=== PATIENT | male | born 1945 | race Caucasian/White ===

== ENCOUNTER → 2018-02-27 13:02 | Outpatient (CLI) | payer MEDICARE, SELFPAY ==
--- NOTE | 2018-03-03 07:05 | LEAS ---
Arterial Study - Arterial Study Arterial Study: This is a 72-year-old male with a history of hyperlipidemia, smoking, and peripheral arterial occlusive disease. The patient presents with wounds of the left foot. With a history of peripheral arterial disease, the patient was brought to the noninvasive vascular laboratory at this time for the purpose of bilateral noninvasive lower extremity arterial assessment. Doppler signal assessment was used to evaluate the pulses at ankle level bilaterally. On the right, the posterior tibial pulse was triphasic. The right dorsalis pedis pulse was biphasic. The left posterior tibial pulse was biphasic. The left dorsalis pedis pulse was monophasic. Segmental limb pressures were obtained bilaterally. The right ankle pressure, as determined by posterior tibial pulse, was measured at 134 mmHg. The right ankle pressure, as determined by dorsalis pedis pulse, was measured at 144 mmHg. The right digital pressure was measured at 35 mmHg. The left low thigh pressure was measured at 144 mmHg. The left calf pressure was measured at 99 mmHg. The left ankle pressure, as determined by posterior tibial pulse, was measured at 75 mmHg. The left ankle pressure, as determined by dorsalis pedis pulse, could not be determined due to the noncompressibility of the vasculature. The left digital pressure was measured at 29 mmHg. Pulse-volume recordings were obtained bilaterally and segmentally. Waveform amplitudes appeared to be diminished at ankle and digital levels on the left. Resting ankle-brachial indices were calculated bilaterally. The resting right ankle-brachial index was calculated to be 1.25. The resting left ankle-brachial index was calculated to be 0.65. Digital-brachial indices were calculated bilaterally. The right digital-brachial index was calculated to be 0.30. The left digital-brachial index was calculated to be 0.25. Impression: Based upon the findings of this resting noninvasive lower extremity arterial study, arterial perfusion appears to be relatively normal to ankle level on the right. Triphasic and biphasic waveforms were noted at ankle level on the right. The resting right ankle-brachial index was normal. The resting left ankle-brachial index is moderately diminished, consistent with moderate arterial occlusive disease at ankle level on the left. Digital-brachial indices are severely diminished bilaterally, suggesting the presence of severe impairment of arterial flow at digital level bilaterally. Clinical correlation is advised.
--- NOTE | 2018-03-03 07:09 | LEAS_ITS ---
Arterial Study - Arterial Study Arterial Study: This is a 72-year-old male with a history of hyperlipidemia, smoking, and peripheral arterial occlusive disease. The patient presents with wounds of the left foot. With a history of peripheral arterial disease, the patient was brought to the noninvasive vascular laboratory at this time for the purpose of bilateral noninvasive lower extremity arterial assessment. Doppler signal assessment was used to evaluate the pulses at ankle level bilaterally. On the right, the posterior tibial pulse was triphasic. The right dorsalis pedis pulse was biphasic. The left posterior tibial pulse was biphasic. The left dorsalis pedis pulse was monophasic. Segmental limb pressures were obtained bilaterally. The right ankle pressure, as determined by posterior tibial pulse, was measured at 134 mmHg. The right ankle pressure, as determined by dorsalis pedis pulse, was measured at 144 mmHg. The right digital pressure was measured at 35 mmHg. The left low thigh pressure was measured at 144 mmHg. The left calf pressure was measured at 99 mmHg. The left ankle pressure, as determined by posterior tibial pulse, was measured at 75 mmHg. The left ankle pressure, as determined by dorsalis pedis pulse, could not be determined due to the noncompressibility of the vasculature. The left digital pressure was measured at 29 mmHg. Pulse-volume recordings were obtained bilaterally and segmentally. Waveform amplitudes appeared to be diminished at ankle and digital levels on the left. Resting ankle-brachial indices were calculated bilaterally. The resting right ankle-brachial index was calculated to be 1.25. The resting left ankle- brachial index was calculated to be 0.65. Digital-brachial indices were calculated bilaterally. The right digital- brachial index was calculated to be 0.30. The left digital-brachial index was calculated to be 0.25. Impression: Based upon the findings of this resting noninvasive lower extremity arterial study, arterial perfusion appears to be relatively normal to ankle level on the right. Triphasic and biphasic waveforms were noted at ankle level on the right. The resting right ankle-brachial index was normal. The resting left ankle-brachial index is moderately diminished, consistent with moderate arterial occlusive disease at ankle level on the left. Digital-brachial indices are severely diminished bilaterally, suggesting the presence of severe impairment of arterial flow at digital level bilaterally. Clinical correlation is advised.
== END ==
PROVIDERS: Family Provider Internal Medicine; PCP Internal Medicine; Visit Provider Podiatrist
DX: I73.9 Peripheral vascular disease, unspecified (principal)
CPT/HCPCS: 93923

== ENCOUNTER → 2018-06-07 08:36 | Outpatient (CLI) | payer MEDICARE, SELFPAY ==
[2018-06-07 09:10] LABS: International Normalized Ratio 1.9; Prothrombin Time (Protime)PT. 21.5 SECONDS (11.7-14.9)
== END ==
PROVIDERS: Family Provider Internal Medicine; PCP Internal Medicine; Visit Provider Internal Medicine
DX: I35.9 Nonrheumatic aortic valve disorder, unspecified (principal); I73.9 Peripheral vascular disease, unspecified; Z95.2 Presence of prosthetic heart valve
CPT/HCPCS: 85610

== ENCOUNTER → 2018-11-21 13:42 | Outpatient (CLI) | payer MEDICARE, SELFPAY ==
[2018-11-21 14:04] LABS: International Normalized Ratio 3.2
== END ==
PROVIDERS: Family Provider Internal Medicine; PCP Internal Medicine; Referring Provider Internal Medicine; Visit Provider Internal Medicine
DX: I25.719 Atherosclerosis of autologous vein coronary artery bypass graft(s) with unspecified angina pectoris (principal); I35.9 Nonrheumatic aortic valve disorder, unspecified; I73.9 Peripheral vascular disease, unspecified
CPT/HCPCS: 85610

== ENCOUNTER → 2019-02-21 | Outpatient (CLI) | payer MEDICARE, SELFPAY ==
[2019-02-21 10:18] LABS: International Normalized Ratio 2.5; Prothrombin Time (Protime)PT. 27.1 SECONDS (11.7-14.9)
== END | disposition home or self-care (01) ==
PROVIDERS: Family Provider Internal Medicine; PCP Internal Medicine; Referring Provider Internal Medicine; Visit Provider Internal Medicine
DX: I25.719 Atherosclerosis of autologous vein coronary artery bypass graft(s) with unspecified angina pectoris (principal); I35.9 Nonrheumatic aortic valve disorder, unspecified; I73.9 Peripheral vascular disease, unspecified
CPT/HCPCS: 85610

== ENCOUNTER → 2019-03-23 | Outpatient (CLI) | payer MEDICARE, SELFPAY ==
[2017-07-26 08:13] VITALS: BMI 23.7
[2019-03-23 10:49] LABS: International Normalized Ratio 2.4; Prothrombin Time (Protime)PT. 26.3 SECONDS (11.7-14.9)
== END | disposition home or self-care (01) ==
LOC: LABSPEC 10:27
PROVIDERS: Family Provider Internal Medicine; PCP Internal Medicine; Referring Provider Internal Medicine; Visit Provider Internal Medicine
DX: I73.9 Peripheral vascular disease, unspecified (principal); I35.9 Nonrheumatic aortic valve disorder, unspecified; I25.719 Atherosclerosis of autologous vein coronary artery bypass graft(s) with unspecified angina pectoris
CPT/HCPCS: 85610

== ENCOUNTER → 2019-05-16 09:01 | Outpatient (CLI) | payer MEDICARE, SELFPAY ==
[2017-07-26 08:13] VITALS: BMI 23.7
[2019-05-16 09:33] LABS: Prothrombin Time (Protime)PT. 22.6 SECONDS (11.7-14.9)
== END ==
PROVIDERS: Family Provider Internal Medicine; PCP Internal Medicine; Referring Provider Internal Medicine; Visit Provider Internal Medicine
DX: I73.9 Peripheral vascular disease, unspecified (principal); I35.9 Nonrheumatic aortic valve disorder, unspecified; I25.719 Atherosclerosis of autologous vein coronary artery bypass graft(s) with unspecified angina pectoris
CPT/HCPCS: 85610

== ENCOUNTER 2019-12-24 10:23 | Emergency (ER) | payer MEDICARE, SELFPAY ==
[2019-12-24 10:23] VITALS: BP 175/8; PULSE 72; RESP 18; TEMP 36.6; O2SAT 97; BMI 23.6
--- NOTE | 2019-12-24 10:32 | RAD_ITS ---
STUDY: X-RAY - LEFT HAND REASON FOR EXAM: Male, 74 years old. 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 ON COUMADIN TECHNIQUE: 3 view(s) of the hand. COMPARISON: None. FINDINGS: Normal radiocarpal articulation. Normal distal radioulnar joint. Normal visualized carpal bones. Normal carpal articulations Normal carpometacarpal articulation of the thumb. Normal second through fifth carpometacarpal joints. Normal metacarpi. Normal metacarpophalangeal joint of the thumb. Normal interphalangeal joint of the thumb. Normal proximal and distal phalanges of the thumb. Normal metacarpophalangeal joints of the second through fifth fingers. Normal proximal and distal interphalangeal joints of the second through fifth fingers. Normal phalanges of the second through fifth fingers. Diffuse soft tissue swelling especially along the dorsal aspect of the hand. There are multiple tiny radial opaque opacities suggestive of a foreign bodies. There is evidence of a 3.9 linear radiopaque foreign body along the ulnar aspect of the first metacarpal suggestive of a metallic foreign body. RAD/Hand Min 3 Views IMPRESSION: Diffuse soft tissue swelling and laceration. Multiple radiopaque foreign bodies within the soft tissues. Electronically Signed: Campbell Last, at 11:53 EDT , Service support ,
--- NOTE | 2019-12-24 10:33 | ED.DCSUM_ITS ---
History of Present Illness Chief Complaint: Laceration Detail of Chief Complaint: Dorsum left hand Informant: Patient, Significant Other Onset: Hours Mechanism/Context: Incised Quality of Pain: Aching Location: Left hand Current Severity: Gone Maximum Severity: Mild Worsened by: Palpation Relieved by: Nothing Associated Symptoms: Negative for: Parasthesias, Weakness, Loss of function Narrative: Patient is elderly male on Coumadin since he has a metallic [place] valve. INR was last assessed 1 month ago. He presents with laceration dorsal surface left hand. He was grinding. He is right-hand dominant. He denies paresthesia, anesthesia motor aches. He is not a good informant. Believe this to be secondary to the fact that he is hard of hearing. assisted with history. Prior similar symptoms: No Recent Illness/Hospitalization: No - Past Medical History (1) C2 cervical fracture Status: Acute (2) Closed fracture of iliac wing of pelvis Status: Acute (3) Closed head injury Status: Acute (4) Right humeral fracture Status: Acute (5) Subdural hematoma Status: Acute (6) BPH (benign prostatic hyperplasia) Status: Chronic (7) Colitis Status: Chronic (8) Depression Status: Chronic (9) Dyslipidemia Status: Chronic (10) H/O aortic valve replacement Status: Chronic (11) HTN (hypertension) Status: Chronic (12) Hearing impairment Status: Chronic (13) History of total hip arthroplasty Status: Chronic (14) Hypothyroidism Status: Chronic (15) Insomnia Status: Chronic (16) Macular degeneration Status: Chronic Comment: with associated loc (closed head injury) (17) Osteoporosis Status: Chronic (18) RLS (restless legs syndrome) Status: Chronic Past Medical History - Allergies and Home Meds Allergies/Adverse Reactions: Allergies iodine Allergy (Verified 02/20/16 16:38) [facility] Primary Care Physician: Abe Childress MD [Primary Care Provider] - Prior records reviewed: Yes Surgical History: coronary bypass surgery, - - CABG, MVR vs AVR, T LHR w/ follow-up surgery for infection, Sciatic nerve stimulator, R thigh compartment syndrome surgery, Eye surgery, Back surgery w/ fusion, Jaw surgery, Hip surgery, recent R incarcerated femoral hernia, R hemicolectomy, Cholecystectomy, Chest Tube placement, Rib repair/plates s/p trauma. Lives: Spouse/ Significant Other Smoking Status: Former smoker Alcohol: None Drugs: None - Family History Maternal Family History: Reports: Hypertension, Stroke - CVA, 84. Paternal Family History: Reports: Heart Disease - MA at 72. Review of Systems Musculoskeletal: Reports: Extremity Pain. Denies: Myalgias, Arthralgias, Neck pain, Back pain, Swelling Skin: Reports: Wounds. Denies: Rash Neurological: Denies: Weakness, Parasthesia, Numbness Psych: Reports: Depression Hematologic: Reports: Easy bruising, Easy bleeding Allergy: Denies: Uticaria, Swelling of the mouth Physical Exam Vital Signs/Narrative: Vital Signs Temp Pulse Resp BP Pulse Ox 12/24/19 10:23 97.8 F 72 18 175/8 H 97 Inital Vital Signs reviewed: Yes General: Well nourished, Well developed Head: Normocephalic, Atraumatic Eyes: Perrl. Negative for: Pale conjunctiva, Scleral icterus Cardiovascular: Regular rate, Regular rhythm, No murmurs, - - Metallic click noted over the left lower sternal border. Transmits throughout the precordium. Respiratory: No distress, CTA bilaterally, Chest nontender Extremeties: There is a laceration from the MCP joint of the left index finger to the wrist. The extensor indices tendon is functionally intact. The extensor commonness tendon is intact to the long and ring finger. Capillary refill is normal. Sensation is normal. Median, radial and ulnar function intact. Neurological: Alert, Cranial nerves II-XII grossly intact, Normal Strength, Normal Sensation Psychological: Depressed - Glascow Coma Scale Eye Opening: Spontaneous Motor: Obeys Commands Verbal: Oriented Coma Scale Total: 15 Diagnostic/Tx/Re-eval Chest X-Ray - ED: Read by ED Physician, - - 3 x-ray hand reveals multiple pieces of metallic foreign body. 12/24/19 10:32 Hand Min 3 Views [RAD] Stat Laboratory Results 12/24/19 11:20 PT 20.4 H INR 1.8 3 view x-ray of the hand reveals multiple metallic foreign bodies. There is no evidence of fracture. There is no other abnormality noted. - Medical Decision Making She has a significant laceration dorsal surface of the left hand over the second metacarpal bone. There is a large clot noted. Will obtain x-ray to determine if there is any metallic foreign body from grinding. Plan is to anesthetize the area evacuate the clot and determine if there is injury to the extensor tendon or not. We will then repair laceration. Please read procedure note. Laceration No standard instances Length: 2.36 in Depth: There is involvement of skin, subcutaneous tissue, fascia, muscle and extensor into site tendon Shape: Linear Prep: Sterile Conditions, Shure-Clens Laceration Repair: Local Irrigated (ml): 250 Number of Sutures/Fleming: 10 - 1 simple 9 vertical mattress stitches Stitch Description: Ethilon, 5-0 Comment: Patient splayed the extensor in the site tendon. The length of the tendon injury is 2.5 cm. The wound was Nestabs for local infiltration. The wound was copiously irrigated. Clots were removed. Foreign body was removed. The tendon was not repaired. The skin was closed with 5-0 Ethilon. requested follow-up with orthopedics at [facility]. She was informed that Dr. Los Hills is orthopedic surgeon and comes to [facility] and also specializes in hand. Procedures - Upper Extremity Splints Upper Extremity Splint: Orthoglass, - - Volar splint with wrist in extension and fingers in extension ED Disposition - Plan for ED Patient: Disposition: Home or Assisted Living Diagnosis: Laceration of hand involving extensor tendon Instructions: LACERATION, Hand, LACERATION, Tendon Prescriptions: Cephalexin [Keflex] 500 mg PO TID #10 cap Transmission Status: Pending to [id number] Referrals: Abe Childress MD [Primary Care Provider] - Los Hills MD [STAFF PHYSICIAN] - 2 Days for wound check
[2019-12-24 11:39] LABS: International Normalized Ratio 1.8; Prothrombin Time (Protime)PT. 20.4 SECONDS (11.7-14.9)
[2019-12-24] MEDS: Cefazolin 1 GM/5 ML Vial IM (13:07)
[2019-12-24 13:24] VITALS: BP 134/65; PULSE 70; RESP 18; O2SAT 96
== END 2019-12-24 13:40 | disposition home or self-care (01) ==
PROVIDERS: Emergency Provider Emergency Medicine; PCP Internal Medicine
DX: S61.422A Laceration with foreign body of left hand, initial encounter (principal); Y93.9 Activity, unspecified; Z79.01 Long term (current) use of anticoagulants; Z87.891 Personal history of nicotine dependence; Z95.1 Presence of aortocoronary bypass graft; Z95.2 Presence of prosthetic heart valve
CPT/HCPCS: 12001; 73130; 85610; 96372; 99283

== ENCOUNTER 2019-12-25 13:15 | Emergency (ER) | payer MEDICARE, SELFPAY ==
[2019-12-24 10:23] VITALS: BMI 23.6
[2019-12-25 13:18] VITALS: BP 120/67; PULSE 93; RESP 16; TEMP 36.6; O2SAT 99; BMI 24.0
--- NOTE | 2019-12-25 13:48 | ED.DCSUM_ITS ---
- ER Visit Summary Date of Service: 12/25/19 Chief Complaint: Wound check History of Present Illness: The patient is a 74 M who presents for a wound check to his left hand laceration. Patient was seen here yesterday and had sutures placed for laceration to his left hand that occurred using a gear and spline grinder. Patient did have a tendon laceration and was placed in a splint. Patient is on Coumadin and had a pressure dressing applied yesterday. Patient denies any further bleeding. Patient denies any fevers or chills. Patient admits to some tingling and tightness to his hand from his dressing. Physical Examination: Vital signs are stable. Patient is afebrile. Patient is in no acute distress. Skin is warm dry. There is a laceration over the dorsal aspect of his left hand that has been sutured. There is no active bleeding. There is no erythema or warmth. There is no discharge or drainage. Sensation was intact to light touch in all digits. Capillary refill was less than 2 seconds in all digits. Radial pulses are equal bilaterally. Emergency Department Course and Treatment: The splint and dressing was removed. A Xeroform and Telfa dressing was applied. An ABD dressing was applied over that. Gauze dressing and the splint was reapplied. Patient states his hand feels better after this. Patient was instructed to keep his hand elevated. Patient was instructed to continue his Coumadin as prescribed. Patient was instructed to follow-up with his primary care physician in 5 to 7 days. Patient was instructed to follow-up with his orthopedist as scheduled. Patient understood and was agreeable with the plan. All questions were answered. Disposition: Discharge home Impression: 1. Wound check 2. Healing laceration left hand This note was generated with [employer] dictation software. It may contain incorrect words, spelling, and punctuation that were not noted in review of the chart prior to signing ED Disposition - Plan for ED Patient: Disposition: Home or Assisted Living Diagnosis: Encounter for post-traumatic wound check Instructions: WOUND CHECK, Lac F/U (No Infection) Referrals: Abe Childress MD [Primary Care Provider] - 5-7 Days Los Hills MD [STAFF PHYSICIAN] - Keep Mark appointment
--- NOTE | 2019-12-25 14:03 | ED.RN ---
assisted patient into wheelchair at discharge, family refuses help getting patient out to the car. family pushes wheelchair out of department.
== END 2019-12-25 14:04 | disposition home or self-care (01) ==
PROVIDERS: Emergency Provider Emergency Medicine; PCP Internal Medicine
DX: Z48.00 Encounter for change or removal of nonsurgical wound dressing (principal); Z79.01 Long term (current) use of anticoagulants
CPT/HCPCS: 99282

== ENCOUNTER 2020-02-01 12:00 | Outpatient (RCR) | payer MEDICARE, SELFPAY ==
[2020-01-18 14:08] VITALS: BP 122/61; PULSE 78; RESP 18; TEMP 36.3; BMI 24.0
--- NOTE | 2020-01-18 14:12 | WC ---
Pt had accident on December 23 with tool and cutter grinder. Pt went to ER for sutures. then refered to Dr Hills for suture removal. then refered to [facility]. pt L anterior hand incision open and ligament exposed . no erthyema
--- NOTE | 2020-01-18 16:46 | HP.PCM_ITS ---
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 Current Visit: Yes Qualifiers: Encounter type: subsequent encounter Qualified Code(s): T81.31XD - Disruption of external operation (surgical) wound, not elsewhere classified, subsequent encounter Code(s): T81.31XA - Disruption of external operation (surgical) wound, not elsewhere classified, initial encounter (3) Dyslipidemia Status: Chronic Current Visit: Yes Code(s): E78.5 - Hyperlipidemia, unspecified (4) Hearing impairment Status: Chronic Current Visit: Yes Qualifiers: Hearing loss type: unspecified Laterality: unspecified laterality Qualified Code(s): H91.90 - Unspecified hearing loss, unspecified ear Code(s): H91.90 - Unspecified hearing loss, unspecified ear (5) Aortocoronary bypass status Status: Chronic Current Visit: Yes Code(s): Z95.1 - Presence of aortocoronary bypass graft Comment: x2 1998 (6) History of heart valve replacement Status: Chronic Current Visit: Yes Code(s): Z95.2 - Presence of prosthetic heart valve Comment: metallic aortic valve 1998 (7) History of coronary artery bypass graft Status: Chronic Current Visit: Yes (8) H/O aortic valve replacement Status: Chronic Current Visit: Yes Code(s): Z95.2 - Presence of prosthetic heart valve (9) Pacemaker Status: Chronic Current Visit: Yes Code(s): Z95.0 - Presence of cardiac pacemaker (10) HTN (hypertension) Status: Chronic Current Visit: Yes Qualifiers: Hypertension type: unspecified Qualified Code(s): I10 - Essential (primary) hypertension Code(s): I10 - Essential (primary) hypertension History of Present Illness Date of Service: 01/18/20 Chief Complaint: left hand laceration with dehiscence History of Wound: Tereso is a pleasent 74 yo male with hearing impairment that presents to the wound center today for treatment and evaluation of a laceration of his left hand that occurred on 12/24/2019 when he injured himself with a metal tank erector and waited 5 hours before seeking medical treatment. He had significant blood loss as he is chronically anticoagulated with coumadin for a prosthetic heart valve replacement. He was seen in the ER at [facility] and the wound was irrigated due to metal fragments in the wound and there was a lengthwise injury to his extensor tendon but it was still intact. The skin was sutured together and he was placed on keflex. He returned to the ER on 12/25/2019 for a dressing change. He was referred to Dr. Hills for further treatment and management to ensure that the tendon was healed and no further surgery would be needed. He examined him and noted significant swelling and bruising and had return in 1 week. On 01/03/2020, he returned for follow up and had some dehiscence of the laceration and the sutures were removed and he was placed on Bactrim DS. He followed up on 01/14/2020 and had partial exposure of tendon. He was referred here by Dr. Hills for further treatment and evaluation. He is here today with his sister who provides much of the history with him having significant hearing loss. She has been doing dressing changes daily with wet to dry dressings. 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 He has significant bleeding with dressing changes due to his chronic anticoagulation. He denies fever or chills or increased drainage or pain or erythema. Past Medical History Past Medical History: Chronic Problems Dehiscence of closure of skin (Chronic) BPH (benign prostatic hyperplasia) (Chronic) Depression (Chronic) Colitis (Chronic) Dyslipidemia (Chronic) Hearing impairment (Chronic) Aortocoronary bypass status (Chronic) x2 1998 Hypothyroidism (Chronic) Insomnia (Chronic) Macular degeneration (Chronic) with associated loc (closed head injury) Ulcerative colitis (Chronic) History of heart valve replacement (Chronic) metallic aortic valve 1998 History of total hip arthroplasty (Chronic) History of coronary artery bypass graft (Chronic) H/O aortic valve replacement (Chronic) Pacemaker (Chronic) History of lumbar fusion (Chronic) History of rib fracture (Chronic) RLS (restless legs syndrome) (Chronic) Recurrent right inguinal hernia (Chronic) Osteoporosis (Chronic) HTN (hypertension) (Chronic) Surgical History: coronary bypass surgery, - - CABG, MVR vs AVR, T LHR w/ follow-up surgery for infection, Sciatic nerve stimulator, R thigh compartment syndrome surgery, Eye surgery, Back surgery w/ fusion, Jaw surgery, Hip surgery, recent R incarcerated femoral hernia, R hemicolectomy, Cholecystectomy, Chest Tube placement, Rib repair/plates s/p trauma. Allergies/Adverse Reactions: Allergies iodine Allergy (Verified 02/20/16 16:38) Hives Home Medications: Ambulatory Orders Medication Instructions Recorded Carvedilol [Coreg (Beta Margaret)] 12.5 mg PO BID 07/04/14 Levothyroxine [Synthroid] 88 mcg PO DAILY 07/04/14 Pantoprazole Sodium [Protonix] 40 mg PO DAILY 07/04/14 Temazepam [Restoril] 15 mg PO QHS PRN PRN 07/04/14 Terazosin HCl [Hytrin] 5 mg PO BID 07/04/14 Warfarin [Coumadin] 10 mg PO MOWEFR 07/04/14 Calcipotriene/Betamethasone 1 applicatio TOPICAL DAILY 02/20/16 [Calcipotriene-Betameth Dp Oint] Clobetasol Propionate 1 applicatio TOPICAL DAILY 02/20/16 Clobetasol Propionate [Temovate 1 applic TOPICAL DAILY 02/20/16 Ointment] Fluocinolone Acetonide Oil 1 applicatio TOPICAL DAILY 02/20/16 [Dermotic] Isosorbide Mononitrate [Imdur] 30 mg PO DAILY 02/20/16 Ranolazine [Ranexa] 500 mg PO BID 02/20/16 Warfarin Sodium [Coumadin] 7.5 mg PO SUTUTH 02/20/16 Calcium (Elemental) [Os-Miah 500] 500 mg PO BIDCM tablet 03/10/16 Escitalopram Oxalate [Lexapro] 10 mg PO DAILY #30 tablet 03/10/16 Gabapentin [Neurontin] 300 mg PO TIDCM #90 capsule 03/10/16 Lisinopril [Zestril] 5 mg PO DAILY #30 tablet 03/10/16 Magnesium Oxide [Mag-Ox 400] 400 mg PO DAILYCM tablet 03/10/16 Pramipexole Di-HCl [Mirapex] 0.5 mg PO BID #60 tablet 03/10/16 Aspirin [Low Dose Aspirin EC] 81 mg PO DAILY 07/26/17 Atorvastatin Calcium 10 mg PO DAILY 07/26/17 Celecoxib [Celebrex] 100 mg PO BID 07/26/17 Cyanocobalamin (Vitamin B-12) 2,500 mcg PO DAILY 07/26/17 [Vitamin B12] Iron Polysaccharide Complex 65 mg PO DAILYCM 07/26/17 [Ferrex 150] Mirtazapine [Remeron] 15 mg PO QHS 07/26/17 Oxybutynin [Ditropan] 5 mg PO DAILY 07/26/17 Vit C/E/Zn/Coppr/Lutein/Zeaxan 1 each PO BID 07/26/17 [Preservision Areds 2 Softgel] - Family History Maternal Hypertension, Stroke - CVA, 84. Paternal Heart Disease - [place] at 72. Lives: With Family Smoking Status: Never smoker Tobacco Use: Non-smoker Alcohol: None Drugs: None Review of Systems Constitutional: Denies: Chills, Fever, Weight Change Eyes: Denies: Pain, Vision Change HEENT: Denies: Difficulty Hearing, Difficulty Swallowing, Sinus Congestion Cardiovascular: Denies: Chest Pain, Palpitations Respiratory: Denies: Cough, Shortness of Breath Gastrointestinal: Denies: Diarrhea, Nausea, Vomiting Skin: Reports: Wounds Hematologic/ Lymphatic: Denies: Easy Bruising, Easy Bleeding - Physical Exam Vital Signs Temp Pulse Resp BP 97.3 F L 78 18 122/61 H 01/18/20 14:08 01/18/20 14:08 01/18/20 14:08 01/18/20 14:08 General: Alert, Oriented x3, Cooperative, No apparent distress HEENT: Atraumatic, Normocephalic Oral: Moist Mucosa Neck: Supple Lungs: Clear to auscultation Cardiovascular: Regular rate, Regular Rhythm Abdomen: Soft, Non Tender Extremities: No edema Skin: Ulcer/ Wound Wound Measurements and Assessment WC - Nurse 1 - General Ulcer Measurement Start: 01/18/20 13:59 Freq: Status: Active Protocol: Activity Type Activity Date Activity User E-Sign Co-Sign Detail Recorded Client Recorded Date Recorded By Document 01/18/20 14:08 RB [id number] 01/18/20 14:12 RB 01/18/20 14:08 Wound Center Nurse 1 [Ulcer Assessment] 1. L anterior hand -Combined with other wound No -Current Size (cm) - Length 5.5 -Current Size (cm) - Width 1.5 -Current Size (cm) - Depth 0.3 -Total Square Cm 8.25 -Photo Taken Yes -Tunneling No -Undermining/Tunneling No -Circular Undermining No -Exudate Amt Medium -Exudate Type Serosanguineous -Wound Margin Thickened & Rolled Under -Granulation Amt Medium (34-66%) -Granulation Quality [place] -Slough/Fibrin Yes -Necrosis Amt Small (1-33%) -Necrotic Tissue Type Adherent Slough -Structure Exposed Tendon,Fascia,N /A -Texture (Alexandra-wound Skin Appearance) Assessed, Localized Edema -Moisture (Alexandra-wound Skin Appearance Assessed ) -Color (Alexandra-wound Skin Appearance) Assessed -Temperature (Alexandra-wound Skin No Abnormality Appearance) (Pt Warm) -Tenderness on Palpation (Alexandra-wound No Skin Appearance) -Ulcer Cleansing Wound Cleanser -Foul Odor after Cleansing No -Anesthetic Used 4% Lidocaine Solution WC - Nurse 2 - General Ulcer CM Notes Start: 01/18/20 13:59 Freq: Status: Active Protocol: Activity Type Activity Date Activity User E-Sign Co-Sign Detail Recorded Client Recorded Date Recorded By Document 01/18/20 14:43 DV [id number] 01/18/20 14:48 DV 01/18/20 14:43 Wound Center Nurse 2 [Procedure/Treatment] -Time 14:44 -Correct Patient Yes -Correct Side, Site, Position Yes -Correct Procedure Yes -Procedure Performed Yes -Type of Procedure Debridement -Clinical Debridement Subcutaneous -Post Debridement Size (cm) - Length 5.5 -Post Debridement Size (cm) - Width 1.6 -Post Debridement Size (cm) - Depth 0.9 -Total Square Cm 8.80 -Wound/Ulcer Outcome Not Healed -Ulcer Cleansing Rinsed/ Irrigated with Saline -Foul Odor after Cleansing No -Bioengineered Tissue No -Bleeding Controlled with Pressure -Offloading No -Treatment Response Procedure Tolerated Well [See Physician Procedure note for Specifics] Pain Scale: 0-10 Numeric [Pain] -Is Patient Pain Free? Yes Psych/Mental Status: Normal Affect, Appropriate Debridement Note Post-Debridement Measurements/Treatment WC - Nurse 2 - General Ulcer CM Notes Start: 01/18/20 13:59 Freq: Status: Active Protocol: Activity Type Activity Date Activity User E-Sign Co-Sign Detail Recorded Client Recorded Date Recorded By Document 01/18/20 14:43 DV [id number] 01/18/20 14:48 DV 01/18/20 14:43 Wound Center Nurse 2 1. L anterior hand -Time 14:44 -Correct Patient Yes -Correct Side, Site, Position Yes -Correct Procedure Yes -Procedure Performed Yes -Type of Procedure Debridement -Clinical Debridement Subcutaneous -Post Debridement Size (cm) - Length 5.5 -Post Debridement Size (cm) - Width 1.6 -Post Debridement Size (cm) - Depth 0.9 -Total Square Cm 8.80 -Wound/Ulcer Outcome Not Healed -Ulcer Cleansing Rinsed/ Irrigated with Saline -Foul Odor after Cleansing No -Bioengineered Tissue No -Bleeding Controlled with Pressure -Offloading No -Treatment Response Procedure Tolerated Well Pain Scale: 0-10 Numeric Is Patient Pain Free? Yes Wound debrided: left anterior hand Laterality: Left Type of Debridement: Excisional debridement Anesthesia Used: 4% Lidocaine Solution, 5% Lidocaine Gel Depth: Down to and including healthy tissue, in the subcutaneous layer Percentage of wound debrided: 100 Instrument Used: 5mm curette Tissue Removed: yellow slough, devitalized tissue Severity: Fat Layer Exposed Amount of bleeding with debridement: Mild Bleeding Controlled with: Compression and gauze Patient tolerated procedure well Assessment/Plan Active Problems Laceration of left hand (Acute) Dehiscence of closure of skin (Chronic) Dyslipidemia (Chronic) Hearing impairment (Chronic) Aortocoronary bypass status (Chronic) x2 1999 History of heart valve replacement (Chronic) metallic aortic valve 1999 History of coronary artery bypass graft (Chronic) H/O aortic valve replacement (Chronic) Pacemaker (Chronic) HTN (hypertension) (Chronic) Assessment: laceration left dorsal hand with dehiscence and partial extensor tendon exposure Plan: Tereso's wound was evaluated and debrided today. The wound looks healthy overall but did have some slough present. Based on the depth of his wound and the tendon exposure, I feel that the patient would be best served by a wound vac such as snap vac to treat his drainage and improve the depth and promote closure of the wound. He may also benefit from application of an advanced tissue product such as Epifix to close the wound. He has undergone standard wound care since 12/24/2019 and it will be 4 weeks of treatment as of 01/21/2020. He was advised to call with any issues with wound vac. Would consider treatment with medihoney calcium alginate dressing changed daily if wound vac does not stay in place. He will notify us with any erythema, fever, chills, increased bleeding. F/U in 1 week.
[2020-01-28 11:52] VITALS: BP 113/65; PULSE 47; RESP 18; TEMP 36.2; BMI 24.0
[2020-02-01 12:23] VITALS: BP 133/74; PULSE 49; RESP 18; TEMP 36.8; BMI 24.0
--- NOTE | 2020-02-01 18:48 | PCM.WC.PN ---
(1) Laceration of left hand Status: Chronic Current Visit: Yes Qualifiers: Encounter type: subsequent encounter Foreign body presence: without foreign body Qualified Code(s): S61.412D - Laceration without foreign body of left hand, subsequent encounter Code(s): S61.412A - Laceration without foreign body of left hand, initial encounter (2) Dehiscence of closure of skin Status: Chronic Current Visit: Yes Qualifiers: Encounter type: subsequent encounter Qualified Code(s): T81.31XD - Disruption of external operation (surgical) wound, not elsewhere classified, subsequent encounter Code(s): T81.31XA - Disruption of external operation (surgical) wound, not elsewhere classified, initial encounter (3) Dyslipidemia Status: Chronic Current Visit: Yes Code(s): E78.5 - Hyperlipidemia, unspecified (4) Hearing impairment Status: Chronic Current Visit: Yes Qualifiers: Hearing loss type: unspecified Laterality: unspecified laterality Qualified Code(s): H91.90 - Unspecified hearing loss, unspecified ear Code(s): H91.90 - Unspecified hearing loss, unspecified ear (5) Aortocoronary bypass status Status: Chronic Current Visit: Yes Code(s): Z95.1 - Presence of aortocoronary bypass graft Comment: x2 1998 (6) History of heart valve replacement Status: Chronic Current Visit: Yes Code(s): Z95.2 - Presence of prosthetic heart valve Comment: metallic aortic valve 1998 (7) History of coronary artery bypass graft Status: Chronic Current Visit: Yes (8) H/O aortic valve replacement Status: Chronic Current Visit: Yes Code(s): Z95.2 - Presence of prosthetic heart valve (9) Pacemaker Status: Chronic Current Visit: Yes Code(s): Z95.0 - Presence of cardiac pacemaker (10) HTN (hypertension) Status: Chronic Current Visit: Yes Qualifiers: Hypertension type: unspecified Qualified Code(s): I10 - Essential (primary) hypertension Code(s): I10 - Essential (primary) hypertension Type of Wound Date of Service: 02/01/20 Chief Complaint: left hand laceration with dehiscence History of Wound: Tereso is a pleasent 74 yo male with hearing impairment that presents to the wound center today for treatment and evaluation of a laceration of his left hand that occurred on 12/24/2019 when he injured himself with a 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 He had significant blood loss as he is chronically anticoagulated with coumadin for a prosthetic heart valve replacement. He was seen in the ER at [facility] and the wound was irrigated due to metal fragments in the wound and there was a lengthwise injury to his extensor tendon but it was still intact. The skin was sutured together and he was placed on keflex. He returned to the ER on 12/25/2019 for a dressing change. He was referred to Dr. Hills for further treatment and management to ensure that the tendon was healed and no further surgery would be needed. He examined him and noted significant swelling and bruising and had return in 1 week. On 01/03/2020, he returned for follow up and had some dehiscence of the laceration and the sutures were removed and he was placed on Bactrim DS. He followed up on 01/14/2020 and had partial exposure of tendon. He was referred here by Dr. Hills for further treatment and evaluation. He is here today with his sister who provides much of the history with him having significant hearing loss. She has been doing dressing changes daily with wet to dry dressings. 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 He has significant bleeding with dressing changes due to his chronic anticoagulation. He denies fever or chills or increased drainage or pain or erythema. Progress of Wound: [place]sons wound is showing tremendous progress with the SNAP vac treatment. He is tolerating the treatment well. Initially he had to have it changed after 4 days due to some bleeding and large amount of drainage but it has decreased in size significantly and the tendon is no longer exposed. He denies any fever or chills or pain. He notes some decreased sensation in his index and middle fingers and some persistent swelling. - Physical Exam Vital Signs Temp Pulse Resp BP 98.3 F 49 L 18 133/74 H 02/01/20 12:23 02/01/20 12:23 02/01/20 12:23 02/01/20 12:23 General: Alert, No apparent distress HEENT: Atraumatic, Normocephalic Oral: Moist Mucosa Neck: Supple Skin: Ulcer/ Wound Wound Measurements and Assessment WC - Nurse 1 - General Ulcer Measurement Start: 04/10/20 13:59 Freq: Status: Active Protocol: Activity Type Activity Date Activity User E-Sign Co-Sign Detail Recorded Client Recorded Date Recorded By Document 02/01/20 12:23 DV [id number] 02/01/20 12:31 DV 02/01/20 12:23 Wound Center Nurse 1 [Ulcer Assessment] 1. L anterior hand -Combined with other wound No -Current Size (cm) - Length 3.8 -Current Size (cm) - Width 0.6 -Current Size (cm) - Depth 0.1 -Total Square Cm 2.28 -Photo Taken No -Epithelialization Small 1-33% -Tunneling No -Undermining/Tunneling No -Circular Undermining No -Granulation Amt Large (67-100%) -Granulation Quality Red -Slough/Fibrin Yes -Necrosis Amt Small (1-33%) -Necrotic Tissue Type Adherent Slough -Structure Exposed N/A -Texture (Alexandra-wound Skin Appearance) Assessed, Scarring -Moisture (Alexandra-wound Skin Appearance No Abnormality, ) Assessed -Color (Alexandra-wound Skin Appearance) No Abnormality, Assessed -Temperature (Alexandra-wound Skin No Abnormality Appearance) (Pt Warm) -Tenderness on Palpation (Alexandra-wound Yes Skin Appearance) -Ulcer Cleansing soap and water -Foul Odor after Cleansing No -Anesthetic Used 4% Lidocaine Solution [Edema Assessment] -Lower Limb Edema Present No WC - Nurse 2 - General Ulcer CM Notes Start: 01/18/20 13:59 Freq: Status: Active Protocol: Activity Type Activity Date Activity User E-Sign Co-Sign Detail Recorded Client Recorded Date Recorded By Document 02/01/20 13:09 DV [id number] 02/01/20 13:15 DV 02/01/20 13:09 Wound Center Nurse 2 [Procedure/Treatment] 1. L anterior hand -Time 13:12 -Correct Patient Yes -Correct Side, Site, Position Yes -Correct Procedure Yes -Procedure Performed Yes -Type of Procedure Debridement -Clinical Debridement Subcutaneous -Post Debridement Size (cm) - Length 3.8 -Post Debridement Size (cm) - Width 0.7 -Post Debridement Size (cm) - Depth 0.3 -Total Square Cm 2.66 -Wound/Ulcer Outcome Not Healed -Ulcer Cleansing Rinsed/ Irrigated with Saline -Foul Odor after Cleansing No -Bioengineered Tissue No -Bleeding Controlled with Pressure -Offloading No -Treatment Response Procedure Tolerated Well [See Physician Procedure note for Specifics] Pain Scale: 0-10 Numeric [Pain] -Is Patient Pain Free? Yes Psych/Mental Status: Normal Affect, Appropriate Debridement Note Post-Debridement Measurements/Treatment WC - Nurse 2 - General Ulcer CM Notes Start: 01/18/20 13:59 Freq: Status: Active Protocol: Activity Type Activity Date Activity User E-Sign Co-Sign Detail Recorded Client Recorded Date Recorded By Document 01/18/20 14:43 DV [id number] 01/18/20 14:48 DV Document 02/01/20 13:09 DV [id number] 02/01/20 13:15 DV 01/18/20 02/01/20 14:43 13:09 Wound Center Nurse 2 1. L anterior hand -Time 14:44 13:12 -Correct Patient Yes Yes -Correct Side, Site, Position Yes Yes -Correct Procedure Yes Yes -Procedure Performed Yes Yes -Type of Procedure Debridement Debridement -Clinical Debridement Subcutaneous Subcutaneous -Post Debridement Size (cm) - Length 5.5 3.8 -Post Debridement Size (cm) - Width 1.6 0.7 -Post Debridement Size (cm) - Depth 0.9 0.3 -Total Square Cm 8.80 2.66 -Wound/Ulcer Outcome Not Healed Not Healed -Ulcer Cleansing Rinsed/ Rinsed/ Irrigated with Irrigated with Saline Saline -Foul Odor after Cleansing No No -Bioengineered Tissue No No -Bleeding Controlled with Pressure Pressure -Offloading No No -Treatment Response Procedure Procedure Tolerated Well Tolerated Well Pain Scale: 0-10 Numeric Is Patient Pain Free? Yes Yes Wound debrided: Left dorsal/anterior hand laceration Laterality: Left Type of Debridement: Excisional debridement Anesthesia Used: 4% Lidocaine Solution, 5% Lidocaine Gel Depth: Down to and including healthy tissue, in the subcutaneous layer Percentage of wound debrided: 100 Instrument Used: 3mm curette Tissue Removed: yellow slough, devitalized tissue Severity: Fat Layer Exposed Amount of bleeding with debridement: Mild Bleeding Controlled with: Compression and gauze Patient tolerated procedure well Assessment/Plan Active Problems Laceration of left hand (Chronic) Dehiscence of closure of skin (Chronic) Dyslipidemia (Chronic) Hearing impairment (Chronic) Aortocoronary bypass status (Chronic) x2 1999 History of heart valve replacement (Chronic) metallic aortic valve 1999 History of coronary artery bypass graft (Chronic) H/O aortic valve replacement (Chronic) Pacemaker (Chronic) HTN (hypertension) (Chronic) Assessment: laceration left dorsal hand with dehiscence and partial extensor tendon exposure Plan: Tereso's wound was evaluated and debrided today. The wound looks healthy overall but did have some slough present. It is making great progress and would plan on continuing Snap vac treatment and will have him follow up next week. May consider application of Epfix to completely heal his wound. He has undergone standard wound care since 12/24/2019 and it will be 6 weeks of treatment as of 02/04/2020. He was advised to call with any issues with wound vac. He will notify us with any erythema, fever, chills, increased bleeding. F/U in 1 week.
== END 2020-02-07 23:59 ==
LOC: WC 12:00
PROVIDERS: PCP Internal Medicine; Visit Provider Family Medicine
DX: T81.31XA Disruption of external operation (surgical) wound, not elsewhere classified, initial encounter (principal); E78.5 Hyperlipidemia, unspecified; S61.412A Laceration without foreign body of left hand, initial encounter; H91.90 Unspecified hearing loss, unspecified ear; Z95.2 Presence of prosthetic heart valve; Z95.1 Presence of aortocoronary bypass graft; Z95.0 Presence of cardiac pacemaker; I10 Essential (primary) hypertension; N40.0 Benign prostatic hyperplasia without lower urinary tract symptoms; E03.9 Hypothyroidism, unspecified; K51.90 Ulcerative colitis, unspecified, without complications; G25.81 Restless legs syndrome; Z79.899 Other long term (current) drug therapy; Z79.82 Long term (current) use of aspirin
CPT/HCPCS: 11042; 97605; 99203; 99212; G0463

== ENCOUNTER 2020-02-15 10:30 | Outpatient (RCR) | payer MEDICARE, SELFPAY ==
[2020-02-08 00:21] VITALS: BP 133/74; PULSE 49; RESP 18; TEMP 36.8
[2020-02-08 10:20] VITALS: BP 95/52; PULSE 69; RESP 16; TEMP 36.4; BMI 24.0
--- NOTE | 2020-02-08 16:26 | PCM.WC.PN ---
(1) Laceration of left hand Status: Chronic Current Visit: Yes Qualifiers: Encounter type: subsequent encounter Foreign body presence: without foreign body Qualified Code(s): S61.412D - Laceration without foreign body of left hand, subsequent encounter Code(s): S61.412A - Laceration without foreign body of left hand, initial encounter (2) Dehiscence of closure of skin Status: Chronic Current Visit: Yes Qualifiers: Encounter type: subsequent encounter Code(s): T81.31XA - Disruption of external operation (surgical) wound, not elsewhere classified, initial encounter (3) Hearing impairment Status: Chronic Current Visit: Yes Qualifiers: Hearing loss type: unspecified Laterality: bilateral Qualified Code(s): H91.93 - Unspecified hearing loss, bilateral Code(s): H91.90 - Unspecified hearing loss, unspecified ear Type of Wound Date of Service: 02/08/20 Chief Complaint: left hand laceration with dehiscence History of Wound: Tereso is a pleasent 74 yo male with hearing impairment that presents to the wound center today for treatment and evaluation of a laceration of his left hand that occurred on 12/24/2019 when he injured 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 He had significant blood loss as he is chronically anticoagulated with coumadin for a prosthetic heart valve replacement. He was seen in the ER at [facility] and the wound was irrigated due to metal fragments in the wound and there was a lengthwise injury to his extensor tendon but it was still intact. The skin was sutured together and he was placed on keflex. He returned to the ER on 12/25/2019 for a dressing change. He was referred to Dr. Hills for further treatment and management to ensure that the tendon was healed and no further surgery would be needed. He examined him and noted significant swelling and bruising and had return in 1 week. On 01/03/2020, he returned for follow up and had some dehiscence of the laceration and the sutures were removed and he was placed on Bactrim DS. He followed up on 01/14/2020 and had partial exposure of tendon. He was referred here by Dr. Hills for further treatment and evaluation. He is here today with his sister who provides much of the history with him having significant hearing loss. She has been doing dressing changes daily with wet to dry dressings. 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 He has significant bleeding with dressing changes due to his chronic anticoagulation. He denies fever or chills or increased drainage or pain or erythema. Progress of Wound: Tan wound is showing tremendous progress with the SNAP vac treatment. He tolerated the treatment well. It is nearly healed. He denies any fever or chills or pain. He notes some decreased sensation in his index and middle fingers and some persistent swelling. - Physical Exam Vital Signs Temp Pulse Resp BP 97.6 F L 69 16 95/52 L 02/08/20 10:20 02/08/20 10:20 02/08/20 10:20 02/08/20 10:20 General: Alert, Oriented x3, Cooperative, No apparent distress HEENT: Atraumatic, Normocephalic Oral: Moist Mucosa Extremities: Edema Skin: Ulcer/ Wound Wound Measurements and Assessment WC - Nurse 1 - General Ulcer Measurement Start: 02/08/20 10:20 Freq: Status: Active Protocol: Activity Type Activity Date Activity User E-Sign Co-Sign Detail Recorded Client Recorded Date Recorded By Document 02/08/20 10:20 MW [id number] 02/08/20 10:28 MW 02/08/20 10:20 Wound Center Nurse 1 [Ulcer Assessment] 1. L anterior hand -Combined with other wound No -Current Size (cm) - Length 2.6 -Current Size (cm) - Width 0.3 -Current Size (cm) - Depth 0.1 -Total Square Cm 0.78 -Date of Last Picture (Recall this 02/08/20 field) -Photo Taken Yes -Epithelialization Medium 34-66% -Tunneling No -Undermining/Tunneling No -Circular Undermining No -Exudate Amt Medium -Exudate Type Serosanguineous -Wound Margin Flat & Intact -Granulation Amt Large (67-100%) -Granulation Quality Red -Slough/Fibrin Yes -Necrosis Amt Small (1-33%) -Necrotic Tissue Type Adherent Slough -Structure Exposed N/A -Texture (Alexandra-wound Skin Appearance) Assessed, Scarring -Moisture (Alexandra-wound Skin Appearance No Abnormality, ) Assessed -Color (Alexandra-wound Skin Appearance) No Abnormality, Assessed -Temperature (Alexandra-wound Skin No Abnormality Appearance) (Pt Warm) -Tenderness on Palpation (Alexandra-wound Yes Skin Appearance) -Ulcer Cleansing soap and water -Foul Odor after Cleansing No -Anesthetic Used 4% Lidocaine Solution [Edema Assessment] -Lower Limb Edema Present No WC - Nurse 2 - General Ulcer CM Notes Start: 02/08/20 10:20 Freq: Status: Active Protocol: Activity Type Activity Date Activity User E-Sign Co-Sign Detail Recorded Client Recorded Date Recorded By Document 02/08/20 10:40 DV [id number] 02/08/20 10:44 DV 02/08/20 10:40 Wound Center Nurse 2 [Procedure/Treatment] 1. L anterior hand -Time 10:41 -Correct Patient Yes -Correct Side, Site, Position Yes -Correct Procedure Yes -Procedure Performed Yes -Type of Procedure Debridement -Clinical Debridement Subcutaneous -Post Debridement Size (cm) - Length 2.5 -Post Debridement Size (cm) - Width 0.3 -Post Debridement Size (cm) - Depth 0.1 -Total Square Cm 0.75 -Wound/Ulcer Outcome Not Healed -Ulcer Cleansing Rinsed/ Irrigated with Saline -Foul Odor after Cleansing No -Bioengineered Tissue No -Bleeding Controlled with Pressure -Offloading No -Treatment Response Procedure Tolerated Well [See Physician Procedure note for Specifics] Pain Scale: 0-10 Numeric [Pain] -Is Patient Pain Free? Yes Psych/Mental Status: Normal Affect, Appropriate Debridement Note Post-Debridement Measurements/Treatment WC - Nurse 2 - General Ulcer CM Notes Start: 02/08/20 10:20 Freq: Status: Active Protocol: Activity Type Activity Date Activity User E-Sign Co-Sign Detail Recorded Client Recorded Date Recorded By Document 02/08/20 10:40 DV [id number] 02/08/20 10:44 DV 02/08/20 10:40 Wound Center Nurse 2 1. L anterior hand -Time 10:41 -Correct Patient Yes -Correct Side, Site, Position Yes -Correct Procedure Yes -Procedure Performed Yes -Type of Procedure Debridement -Clinical Debridement Subcutaneous -Post Debridement Size (cm) - Length 2.5 -Post Debridement Size (cm) - Width 0.3 -Post Debridement Size (cm) - Depth 0.1 -Total Square Cm 0.75 -Wound/Ulcer Outcome Not Healed -Ulcer Cleansing Rinsed/ Irrigated with Saline -Foul Odor after Cleansing No -Bioengineered Tissue No -Bleeding Controlled with Pressure -Offloading No -Treatment Response Procedure Tolerated Well Pain Scale: 0-10 Numeric Is Patient Pain Free? Yes Wound debrided: left anterior hand Laterality: Left Type of Debridement: Selective debridement Anesthesia Used: 4% Lidocaine Solution Depth: Down to and including healthy tissue, in the subcutaneous layer Percentage of wound debrided: 100 Instrument Used: - - gauze Tissue Removed: yellow slough, devitalized tissue Severity: Fat Layer Exposed Amount of bleeding with debridement: Mild Bleeding Controlled with: Compression and gauze Patient tolerated procedure well Assessment/Plan Active Problems Laceration of left hand (Chronic) Dehiscence of closure of skin (Chronic) Hearing impairment (Chronic) Assessment: laceration left dorsal hand with dehiscence and partial extensor tendon exposure Plan: Tereso's wound was evaluated and debrided today. The wound looks healthy overall and is neraly healed. Will discontinue snap vac today and have him apply aquacel extra daily and cover with gauze. He will also change the dressing if it is soiled. He has undergone standard wound care since 12/24/2019 and it will be 6 weeks of treatment as of 02/04/2020. He will notify us with any erythema, fever, chills, increased bleeding or increased drainage or odor. F/U in 1 week.
[2020-02-15 10:54] VITALS: BP 120/63; PULSE 58; RESP 18; TEMP 36.3; BMI 24.0
--- NOTE | 2020-02-15 17:55 | PCM.WC.PN ---
(1) Laceration of left hand Status: Chronic Current Visit: Yes Qualifiers: Encounter type: subsequent encounter Foreign body presence: without foreign body Qualified Code(s): S61.412D - Laceration without foreign body of left hand, subsequent encounter Code(s): S61.412A - Laceration without foreign body of left hand, initial encounter (2) Dehiscence of closure of skin Status: Chronic Current Visit: Yes Qualifiers: Encounter type: subsequent encounter Code(s): T81.31XA - Disruption of external operation (surgical) wound, not elsewhere classified, initial encounter (3) Hearing impairment Status: Chronic Current Visit: Yes Qualifiers: Hearing loss type: unspecified Laterality: bilateral Qualified Code(s): H91.93 - Unspecified hearing loss, bilateral Code(s): H91.90 - Unspecified hearing loss, unspecified ear Type of Wound Date of Service: 02/15/20 Chief Complaint: left hand laceration with dehiscence History of Wound: Tereso is a pleasent 74 yo male with hearing impairment that presents to the wound center today for treatment and evaluation of a laceration of his left hand that occurred on 12/24/2019 when he injured himself with a metal coater and waited 5 hours before seeking medical treatment. He had significant blood loss as he is chronically anticoagulated with coumadin for a prosthetic heart valve replacement. He was seen in the ER at [facility] and the wound was irrigated due to metal fragments in the wound and there was a lengthwise injury to his extensor tendon but it was still intact. The skin was sutured together and he was placed on keflex. He returned to the ER on 12/25/2019 for a dressing change. He was referred to Dr. Hills for further treatment and management to ensure that the tendon was healed and no further surgery would be needed. He examined him and noted significant swelling and bruising and had return in 1 week. On 01/03/2020, he returned for follow up and had some dehiscence of the laceration and the sutures were removed and he was placed on Bactrim DS. He followed up on 01/14/2020 and had partial exposure of tendon. He was referred here by Dr. Hills for further treatment and evaluation. He is here today with his sister who provides much of the history with him having significant hearing loss. She has been doing dressing changes daily with wet to dry dressings. 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 He has significant bleeding with dressing changes due to his chronic anticoagulation. He denies fever or chills or increased drainage or pain or erythema. Progress of Wound: Tan wound is showing tremendous progress with the SNAP vac treatment. He tolerated the treatment well. It is nearly healed. He denies any fever or chills or pain. He notes some decreased sensation in his index and middle fingers and some persistent swelling. - Physical Exam Vital Signs Temp Pulse Resp BP 97.4 F L 58 L 18 120/63 02/15/20 10:54 02/15/20 10:54 02/15/20 10:54 02/15/20 10:54 Wound Measurements and Assessment WC - Nurse 1 - General Ulcer Measurement Start: 02/08/20 10:20 Freq: Status: Active Protocol: Activity Type Activity Date Activity User E-Sign Co-Sign Detail Recorded Client Recorded Date Recorded By Document 02/15/20 10:54 RB [id number] 02/15/20 10:55 RB 02/15/20 10:54 Wound Center Nurse 1 [Ulcer Assessment] 1. L anterior hand -Combined with other wound No -Current Size (cm) - Length 0.1 -Current Size (cm) - Width 0.1 -Current Size (cm) - Depth 0.1 -Total Square Cm 0.01 -Tunneling No -Undermining/Tunneling No -Circular Undermining No -Exudate Amt None Present -Granulation Amt Small (1-33%) -Granulation Quality [place] -Necrosis Amt Medium (34-66%) -Necrotic Tissue Type Adherent Slough -Structure Exposed N/A -Texture (Alexandra-wound Skin Appearance) Assessed, Excoriation -Moisture (Alexandra-wound Skin Appearance Dry/Scaly ) -Color (Alexandra-wound Skin Appearance) Assessed -Temperature (Alexandra-wound Skin No Abnormality Appearance) (Pt Warm) -Tenderness on Palpation (Alexandra-wound No Skin Appearance) -Ulcer Cleansing Wound Cleanser -Foul Odor after Cleansing No -Anesthetic Used 4% Lidocaine Solution WC - Nurse 2 - General Ulcer CM Notes Start: 02/08/20 10:20 Freq: Status: Active Protocol: Activity Type Activity Date Activity User E-Sign Co-Sign Detail Recorded Client Recorded Date Recorded By Document 02/15/20 12:18 DV [id number] 02/15/20 12:19 DV 02/15/20 12:18 Wound Center Nurse 2 [Procedure/Treatment] -Time 12:18 -Correct Patient Yes -Correct Side, Site, Position Yes -Correct Procedure No -Procedure Performed No -Post Debridement Size (cm) - Length 0 -Post Debridement Size (cm) - Width 0 -Post Debridement Size (cm) - Depth 0 -Total Square Cm 0 -Wound/Ulcer Outcome Healed- Epithelialized [See Physician Procedure note for Specifics] Pain Scale: 0-10 Numeric [Pain] -Is Patient Pain Free? Yes Debridement Note Post-Debridement Measurements/Treatment WC - Nurse 2 - General Ulcer CM Notes Start: 02/08/20 10:20 Freq: Status: Active Protocol: Activity Type Activity Date Activity User E-Sign Co-Sign Detail Recorded Client Recorded Date Recorded By Document 02/08/20 10:40 DV [id number] 02/08/20 10:44 DV Document 02/15/20 12:18 DV [id number] 02/15/20 12:19 DV 02/08/20 02/15/20 10:40 12:18 Wound Center Nurse 2 1. L anterior hand -Time 10:41 12:18 -Correct Patient Yes Yes -Correct Side, Site, Position Yes Yes -Correct Procedure Yes No -Procedure Performed Yes No -Type of Procedure Debridement -Clinical Debridement Subcutaneous -Post Debridement Size (cm) - Length 2.5 0 -Post Debridement Size (cm) - Width 0.3 0 -Post Debridement Size (cm) - Depth 0.1 0 -Total Square Cm 0.75 0 -Wound/Ulcer Outcome Not Healed Healed- Epithelialized -Ulcer Cleansing Rinsed/ Irrigated with Saline -Foul Odor after Cleansing No -Bioengineered Tissue No -Bleeding Controlled with Pressure -Offloading No -Treatment Response Procedure Tolerated Well Pain Scale: 0-10 Numeric Is Patient Pain Free? Yes Yes Wound debrided: left anterior hand Laterality: Left No debridement was completed today - the wound is healed Assessment/Plan Active Problems Laceration of left hand (Chronic) Dehiscence of closure of skin (Chronic) Hearing impairment (Chronic) Assessment: laceration left dorsal hand with dehiscence and partial extensor tendon exposure Plan: Tereso's wound was evaluated and is healed today. 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 He will notify us with any erythema, fever, chills, increased bleeding or if there is drainage or odor. F/U in future if needed.
== END 2020-03-09 23:59 ==
LOC: WC 10:30
PROVIDERS: PCP Internal Medicine; Visit Provider Family Medicine
DX: T81.31XA Disruption of external operation (surgical) wound, not elsewhere classified, initial encounter (principal); S61.412A Laceration without foreign body of left hand, initial encounter; H91.93 Unspecified hearing loss, bilateral; W27.8XXA Contact with other nonpowered hand tool, initial encounter
CPT/HCPCS: 97597; 99212; G0463

== ENCOUNTER 2020-03-26 15:00 | Emergency (ER) | payer MEDICARE, SELFPAY ==
[2020-03-26 15:01] VITALS: BP 160/71; PULSE 45; RESP 15; TEMP 36.4; O2SAT 95
--- NOTE | 2020-03-26 15:03 | CT_ITS ---
STUDY: CT CHEST WITHOUT CONTRAST REASON FOR EXAM: Male, 74 years old. TRAUMA, FALL OFF HORSE RADIATION DOSAGE (If Supplied By Facility): CTDIvol = ( 18.48 ) mGy, DLP = ( 803.40 ) mGycm TECHNIQUE: Transaxial imaging was performed without the administration of intravenous contrast material. Multiplanar coronal and sagittal images were reformatted. Individualized dose optimization techniques were used for this CT. COMPARISON: Comparison is made with prior study dated 08/04/2014. FINDINGS: Increased markings are seen in the right upper lobe. With the patient''s history of trauma, this may represent contusion. Increased markings also seen in the superior aspect of the right lower lobe. There is no demonstrated pleural abnormality. Sternal cerclage wires and vascular clips are present from a prior sternotomy and coronary artery bypass graft procedure (CABG). Coronary calcification. Prior aortic valve replacement. There are multiple small lymph nodes within the mediastinum, which are normal in size and morphology most compatible with reactive lymph hyperplasia. Normal hilar regions. Normal unenhanced pulmonary arteries. There is atherosclerotic calcification of the aortic arch with tortuosity and elongation of the aortic arch and descending thoracic aorta. Nondisplaced fractures of the right and left first and second ribs posterolaterally. There is also evidence of a nondisplaced ribs of the right third fourth fifth and sixth ribs anterolaterally. The patient is status post right shoulder replacement. Healed left-sided rib fractures. There is no demonstrated abnormality of the visualized upper abdomen. CT/Chest without Contrast IMPRESSION: Multiple rib fractures as described with findings suggestive of possible pulmonary contusions in the right upper and right lower lobes. Electronically Signed: Campbell Last, at 15:59 EDT , Service support ,
--- NOTE | 2020-03-26 15:03 | CT_ITS ---
STUDY: CT CERVICAL SPINE WITHOUT CONTRAST REASON FOR EXAM: Male, 74 years old. TRAUMA, FALL OFF HORSE RADIATION DOSAGE (If Supplied By Facility): CTDIvol = ( 24.89 ) mGy, DLP = ( 549.41 ) mGycm TECHNIQUE: High resolution transaxial imaging was performed without contrast material. Sagittal and coronal images were reconstructed. Individualized dose optimization techniques were used for this CT. COMPARISON: None FINDINGS: There is evidence of a nondisplaced fractures involving the posterior aspect of the right and left first and second ribs. Normal craniovertebral junction. There are degenerative changes of the anterior atlantoaxial articulation. Normal odontoid process. Normal cervical lordosis. Normal vertebral bodies and posterior osseous elements. C2-3: Normal endplates. Normal disc height and morphology. Normal central canal and intervertebral neuroforamina. C3-4: Mild degree of disc space narrowing. Posterior spondylosis. No significant stenosis is seen. C4-5: Normal endplates. Normal disc height and morphology. Normal central canal and intervertebral neuroforamina. C5-6: Normal endplates. Normal disc height and morphology. Normal central canal and intervertebral neuroforamina. C6-7: Normal endplates. Normal disc height and morphology. Normal central canal and intervertebral neuroforamina. C7-T1: Normal endplates. Normal disc height and morphology. Normal central canal and intervertebral neuroforamina. Calcification of the vertebral arteries bilaterally. CT/Spine Cervical without Contras IMPRESSION: Nondisplaced fractures along the posterior aspect of the right and left first and second ribs. Mild degree of degenerative changes at the C3-C4 level. Electronically Signed: Campbell Last, at 15:52 EDT , Service support ,
--- NOTE | 2020-03-26 15:03 | EKG12_ITS ---
Test Reason : TRAUMA Blood Pressure : / mmHG Vent. Rate : 048 BPM Atrial Rate : 048 BPM P-R Int : 192 ms QRS Dur : 158 ms QT Int : 484 ms P-R-T Axes : 075 010 012 degrees QTc Int : 432 ms Sinus bradycardia Right bundle branch block Possible Inferior infarct ,age undetermined Abnormal ECG Confirmed by CHRIS PARKER, JAN ([id number]), supervising editor trailer JOSUÉ CATALAN ([id number]) on 03/28/2020 11:13:07 AM Referred By: LADONNA Confirmed By:JAN PEREZ MD
--- NOTE | 2020-03-26 15:07 | RAD_ITS ---
STUDY: X-RAY - PELVIS REASON FOR EXAM: Male, 74 years old. Fall TECHNIQUE: One view of the pelvis was obtained. COMPARISON: None. FINDINGS: There is a non-specific bowel gas pattern. Normal visualized soft tissue structures. Prior laminectomy and fusion of the lower lumbar spine. Normal bilateral iliac wings, sacroiliac joints and visualized sacrum. Normal visualized bilateral superior and inferior pubic rami. Normal pubic symphysis. Normal ischial tuberosities. Normal visualized right femoral head. Normal right acetabulum. There is mild articular joint space narrowing of the right hip. The patient status post left hip replacement. RAD/Pelvis 1 or 2 Views IMPRESSION: No acute abnormality is seen. Electronically Signed: Campbell Last, at 16:03 EDT , Service support ,
--- NOTE | 2020-03-26 15:09 | RAD_ITS ---
STUDY: X-RAY - RIGHT SHOULDER REASON FOR EXAM: Male, 74 years old. Fall TECHNIQUE: 4 view(s) of the shoulder. COMPARISON: None. FINDINGS: The patient is status post right shoulder replacement. There is alignment. There is degenerative arthrosis of the acromioclavicular joint without inferior osseous spur formation. Normal acromion. There is evidence of a multiple rib fractures on the right side along the anterior lateral aspects. The soft tissue structures are unremarkable. Increased markings in the right upper lobe. RAD/Shoulder min 2 Views IMPRESSION: Status post right shoulder replacement. Multiple right-sided rib fractures with possible contusions in the right upper lobe. Electronically Signed: Campbell Last, at 16:03 EDT , Service support ,
[2020-03-26 15:11] VITALS: BP 160/71; PULSE 94; RESP 16; TEMP 36.4; O2SAT 93; BMI 25.5
--- NOTE | 2020-03-26 15:12 | ED.DCSUM_ITS ---
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 Onset: Today Mechanism/Context: Blunt Injury, Fall - Fell from 5+ feet. Quality of Pain: - - Able to determine Location: Grimaces with movement of right upper extremity, shoulder and ribs Current Severity: Determine because of language barrier Maximum Severity: Severe - Per Worsened by: Movement right upper extremity Relieved by: Uncertain Associated Symptoms: Loss of consciousness, Amnesia Length of loss of consciousness: Unknown Narrative: Is a 74-year-old rgtid-nifr-skcujgan male with multiple medical problems on Coumadin. He was on a horse. He was not wearing a helmet. Apparently fell from the horse. Circumstances unknown. He reportedly was unresponsive. He arrived on his right side. Patient was placed in a collar. Primary exam was performed. There is evidence of head trauma, there is blood noted from the right side. Since his C-spine cannot be cleared by Nexus criteria he was placed in the collar. He grimaces with movement of the right upper extremity. He points to the shoulder and multiple right ribs. He nodded no to abdominal pain. He nodded no to pelvic pain. He has evidence of psoriasis. There is also bruising noted. He does move all extremities. Prior similar symptoms: No Recent Illness/Hospitalization: No - Past Medical History (1) C2 cervical fracture Status: Acute (2) Closed fracture of iliac wing of pelvis Status: Acute (3) Closed head injury Status: Acute (4) Right humeral fracture Status: Acute (5) Subdural hematoma Status: Acute (6) Aortocoronary bypass status Status: Chronic Comment: x2 1998 (7) BPH (benign prostatic hyperplasia) Status: Chronic (8) Colitis Status: Chronic (9) Depression Status: Chronic (10) Dyslipidemia Status: Chronic (11) H/O aortic valve replacement Status: Chronic (12) HTN (hypertension) Status: Chronic (13) Hearing impairment Status: Chronic (14) History of lumbar fusion Status: Chronic (15) History of rib fracture Status: Chronic (16) History of total hip arthroplasty Status: Chronic (17) Hypothyroidism Status: Chronic (18) Macular degeneration Status: Chronic Comment: with associated loc (closed head injury) (19) Osteoporosis Status: Chronic (20) Pacemaker Status: Chronic (21) RLS (restless legs syndrome) Status: Chronic (22) Recurrent right inguinal hernia Status: Chronic Past Medical History - Allergies and Home Meds Allergies/Adverse Reactions: Allergies iodine Allergy (Verified 03/26/20 15:16) Hives Primary Care Physician: Abe Childress MD [Primary Care Provider] - Prior records reviewed: Yes Surgical History: coronary bypass surgery, - - CABG, MVR vs AVR, T LHR w/ follow-up surgery for infection, Sciatic nerve stimulator, R thigh compartment syndrome surgery, Eye surgery, Back surgery w/ fusion, Jaw surgery, Hip surgery, recent R incarcerated femoral hernia, R hemicolectomy, Cholecystectomy, Chest Tube placement, Rib repair/plates s/p trauma. Lives: Spouse/ Significant Other Smoking Status: Never smoker Alcohol: None Drugs: None - Family History Maternal Family History: Reports: Hypertension, Stroke - CVA, 84. Paternal Family History: Reports: Heart Disease - [place] at 72. Review of Systems ROS: Unable to Obtain Cardiovascular: Reports: Chest pain Skin: Reports: Wounds Hematologic: Reports: Easy bruising, Easy bleeding Physical Exam Inital Vital Signs reviewed: Yes General: Well nourished, Well developed Head: Normocephalic, Trauma, Tenderness, - - There is no depressed skull fracture. Is no clinical findings of basilar skull fracture.. Negative for: Atraumatic Eyes: Perrl, EOMI, - - Is no subconjunctival hemorrhage noted.. Negative for: Pale conjunctiva, Scleral icterus ENT: TM's clear, No hemotympanum or drainage, No trauma. Negative for: Hemotympanum, Otorrhea, Nasal trauma, Nasal septal hematoma Neck: - - Able to determine. Will reassess after scan and have facilitate questioning.. Negative for: Full ROM Cardiovascular: Regular rate, Regular rhythm, No murmurs Respiratory: No distress, Diminished - Diminished and decreased breath sounds on the right, Decreased Air Movement, Chest tenderness - Palpation fifth, sixth, seventh and eighth right ribs. Negative for: CTA bilaterally, Chest nontender Abdomen: Soft, Nontender, Nondistended, Normal bowel sounds, No masses Back: Nontender. Negative for: CVA Tenderness - Right, CVA Tenderness - Left, Spinal Tenderness, Paraspinal Tenderness Skin: Normal color, Rash - Eczema Neurological: Alert - Per he is presently at his baseline., Cranial nerves II-XII grossly intact, Normal Strength, Normal Sensation Psychological: Normal affect Diagnostic/Tx/Re-eval Chest X-Ray - ED: 1 View, Read by ED Physician, - - [place] view x-ray of the pelvis reveals no acute fracture. There is evidence of a total left hip arthroplasty. There is also evidence of fusion of the lower lumbar spine. Surgical clips are noted near the ischio tuberosities. Suspect this is due to vascular surgery. New X-ray of the shoulder reveals a total right shoulder arthroplasty. There are obvious rib fractures noted. There may be a small pneumothorax. Will await CT of the chest to determine if there is pneumothorax/hemothorax and the number of rib fractures. Impressions Cervical Spine CT 03/26/20 15:03 IMPRESSION: Nondisplaced fractures along the posterior aspect of the right and left first and second ribs. Mild degree of degenerative changes at the C3-C4 level. Electronically Signed: Campbell Last, at 15:52 EDT , Service support , Chest CT 03/26/20 15:03 IMPRESSION: Multiple rib fractures as described with findings suggestive of possible pulmonary contusions in the right upper and right lower lobes. Electronically Signed: Campbell Last, at 15:59 EDT , Service support , Pelvis X-Ray 03/26/20 15:07 IMPRESSION: No acute abnormality is seen. Electronically Signed: Campbell Last at 16:03 EDT , Service support , Shoulder X-Ray 03/26/20 15:09 IMPRESSION: Status post right shoulder replacement. Multiple right-sided rib fractures with possible contusions in the right upper lobe. Electronically Signed: Campbell Last at 16:03 EDT , Service support , Brain CT 03/26/20 15:15 IMPRESSION: Chronic involutional changes of the brain. No acute abnormality is seen. Electronically Signed: Campbell Last, at 15:41 EDT , Service support , 03/26/20 15:03 Chest without Contrast [CT] Stat Spine Cervical without Contras [CT] Stat 03/26/20 15:07 Pelvis 1 or 2 Views [RAD] Stat 03/26/20 15:09 Xray Shoulder [Shoulder min 2 Views] [RAD] Stat 03/26/20 15:15 Brain/Head without Contrast [CT] Stat Laboratory Results 03/26/20 03/26/20 03/26/20 15:11 15:11 15:11 WBC 3.7 L RBC 3.76 L Hgb 11.5 L Hct 37.1 L MCV 98.7 H MCH 30.6 MCHC 31.0 L RDW Std Deviation 51.8 H RDW Coeff of Ji 14.4 Plt Count 151 MPV 10.5 Immature Gran % (Auto) 1.300 H Neut % (Auto) 74.2 H Lymph % (Auto) 14.0 L [place] % (Auto) 7.5 Eos % (Auto) 2.7 Baso % (Auto) 0.3 Absolute Neuts (auto) 2.8 Absolute Lymphs (auto) 0.52 L Nucleated RBC % 0 Differential Comment Diff Path Review May foll Platelet Estimate ADEQUATE RBC Morphology NORM C+C PT 22.1 H INR 2.0 APTT 38.1 H Sodium 143 Potassium 4.5 Chloride 109 H Carbon Dioxide 30.0 Anion Gap 4 L BUN 28 H Creatinine 0.90 Est GFR (MDRD) Af Amer 105 Est GFR (MDRD) Non-Af 87 BUN/Creatinine Ratio 31.0 H Glucose 98 Calcium 8.9 - EKG Initial EKG Interpretation: Sinus Bradycardia - Sinus bradycardia with a ventricular rate of 48. MN interval 192 ms. QRS duration 58 ms. QT duration 484 ms with a QTC of 432 ms. There is evidence of right bundle branch block. There is repolarization changes noted because of the right bundle branch block, which the computer is reading is possible inferior infarct. - Medical Decision Making With altered mental status, loss of conscious on Coumadin CT of the head was obtained. Since patient is not able to communicate CT of the neck was obtained to assess for neck trauma. There is a prior history of C2 fracture. CT of the chest was obtained to evaluate for pneumothorax, hemothorax and multiple rib fractures. Tetanus was updated. Appropriate blood work was ordered including PT/INR. Cui was placed to assess for hematuria. No gross hematuria noted. CT of the abdomen was not obtained since he does not grimace or acknowledged that there is discomfort to palpation. Patient has bilateral first second posterior rib fractures. He has also fractured right third fourth fifth sixth rib. There is evidence of pulmonary contusion. Plan was to perform CT with contrast however patient has hives. Will pretreat so once he arrives at trauma center they are able to scan him. Will speak with trauma surgeon Hayden rodriguez since requested Hayden rodriguez. Critical care time 33 minutes this included history, physical, discussion with paramedics, discussion with , arrangement for transfer and discussion with accepting physician for trauma at [facility]. Case was discussed with trauma surgeon Dr. Adkins. ER to ER transfer. He will be a surgical team. 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
--- NOTE | 2020-03-26 15:15 | CT_ITS ---
STUDY: CT BRAIN WITHOUT CONTRAST REASON FOR EXAM: Male, 74 years old. TRAUMA, FALL OFF HORSE RADIATION DOSAGE (If Supplied By Facility): CTDIvol = ( 44.99 ) mGy, DLP = ( 880.47 ) mGycm TECHNIQUE: Transaxial CT imaging of the brain was performed without administration of intravenous contrast material. Individualized dose optimization techniques were used for this CT. COMPARISON: Comparison is made with prior examination dated February 23, 2016. FINDINGS: Normal soft tissue structures. Normal calvarium. There is mild cerebral atrophy with widening of the extra-axial spaces and ventricular dilatation. Normal white matter tracts of the cerebral hemispheres. Old lacunar infarct of the insular cortex of the left temporal lobe. Normal brainstem. Normal cerebellum. There is no intracranial hemorrhage. There are no findings of an acute ischemic infarction. There is atherosclerotic calcification of the vertebral arteries and the cavernous portions of the internal carotid arteries bilaterally. Normal visualized paranasal sinuses. CT/Brain/Head without Contrast IMPRESSION: Chronic involutional changes of the brain. No acute abnormality is seen. Electronically Signed: Campbell Last, at 15:41 EDT , Service support ,
[2020-03-26 15:27] LABS: Absolute Lymphocyte Count 0.52 X10^3/uL (0.83-4.51); Absolute Neutrophil Count 2.8 X10^3/uL (2.0-7.7); Basophil# 0.01 X10^3/uL; Basophil% 0.3 % (0-1); Eosinophils% 2.7 % (0-5); Hematocrit 37.1 % (40-54); Hemoglobin 11.5 g/dL (13.0-16.5); Lymphocyte # 0.52 X10^3/ul (4.0); Mean Corpuscular Hgb 30.6 pg (27.0-32.0); Mean Corpuscular Volume 98.7 fL (80-94); Mean Platelet Vol. 10.5 fl (6.2-12.0); Monocyte# 0.28 X10^3/uL; Monocyte% 7.5 % (0-10); NRBC Flagged by Analyzer 0 % (0-5); Neutrophil # 2.76 X10^3/uL (2.7-7.7); Neutrophil % 74.2 % (47-70); POSITIVE DIFFERENTIAL YES; Platelet Count 151 K/mm3 (150-450); RBC Distribution Width CV 14.4 % (11.6-14.6); RBC Distribution Width SD 51.8 fl (35.1-43.9); Red Blood Count 3.76 M/mm3 (4.6-6.2); White Blood Count 3.7 K/mm3 (4.4-11.0)
[2020-03-26 15:29] LABS: Differential Indicated SCAN CRITERIA MET
[2020-03-26 15:37] LABS: Prothrombin Time (Protime)PT. 22.1 SECONDS (11.7-14.9)
[2020-03-26 15:38] LABS: Partial Thromboplast Time 38.1 Seconds (24.1-36.2)
[2020-03-26 15:40] LABS: Anion Gap 4 (5-15); BUN 28 mg/dL (7-18); Calcium,Total 8.9 mg/dL (8.5-10.1); Chloride 109 mmol/L (98-107); EST Glomerular Filtration Rate 87 mL/min (>60); Est Glom Filt Rate - Afr Amer 105 mL/min (>60); Glucose 98 mg/dL (74-106); Potassium 4.5 mmol/L (3.5-5.1); Sodium Level 143 mmol/L (136-145)
[2020-03-26 16:01] VITALS: BP 158/59; PULSE 46; RESP 20; O2SAT 94
[2020-03-26 16:10] LABS: Platelet Estimate ADEQUATE (ADEQ); Red Cell Morphology NORM C+C NORMAL (NORM C&C)
[2020-03-26] MEDS: Diphth,Pertuss(Acell),Tet Vac 0.5 ML Vial IM (16:24)
[2020-03-26] MEDS: MethylPREDNISolone 125 MG/2 ML Vial 60 MG IV (16:25)
[2020-03-26] MEDS: Famotidine 200 MG/20 ML MDV 20 MG in 0.9% Normal Saline (Pres. free 8 ML 300 MG IV (16:25)
[2020-03-26] MEDS: DiphenhydrAMINE 50 MG/ML Syringe 25 MG IV (16:25)
[2020-03-26 16:30] LABS: Bacteria 0 SEEN /hpf (None Seen); Mucous, Urine 0 SEEN /hpf (<or=2+); Squamous Epithelial Cells - UA 0 SEEN /hpf (0-5)
--- NOTE | 2020-03-26 16:57 | NURSING ---
CALLED [facility], ETA IS 30 MIN
[2020-03-26 17:08] LABS: Color, Urine Yellow (Yellow); Glucose, Dipstick Normal (Normal); Ketone-Dipstick 5 mg/dl (Negative); Leukocyte Esterase-Dipstick Negative /ul (Negative); Nitrite-Dipstick Negative (Negative); Occult Blood-Urine 25 /ul (Negative); Protein-Dipstick 15 mg/dl (Negative); Urine Bilirubin Dipstick Negative (Negative); Urine Clarity Clear (Clear); Urine Urobilinogen Normal (Normal)
[2020-03-26 17:25] VITALS: BP 181/64; PULSE 57; RESP 13; O2SAT 95
--- NOTE | 2020-03-26 17:27 | ED.RN ---
ems in ed
[2020-03-26 17:54] LABS: Red Blood Cells-Urine 0-5 SEEN /hpf (0-5); White Blood Cells 0 SEEN /hpf (0-5)
[2020-03-28 12:16] LABS: Pathologist Review Reviewed
== END 2020-03-26 17:36 | disposition short-term general hospital (02) ==
PROVIDERS: Emergency Provider Emergency Medicine; PCP Internal Medicine
DX: S29.9XXA Unspecified injury of thorax, initial encounter (principal); S06.9X9A Unspecified intracranial injury with loss of consciousness of unspecified duration, initial encounter; S22.43XA Multiple fractures of ribs, bilateral, initial encounter for closed fracture; S27.321A Contusion of lung, unilateral, initial encounter; F32.9 Major depressive disorder, single episode, unspecified; I10 Essential (primary) hypertension; E03.9 Hypothyroidism, unspecified; V80.010A Animal-rider injured by fall from or being thrown from horse in noncollision accident, initial encounter; Y93.52 Activity, horseback riding; Z79.01 Long term (current) use of anticoagulants; Z95.0 Presence of cardiac pacemaker; Z79.82 Long term (current) use of aspirin; Z95.1 Presence of aortocoronary bypass graft
CPT/HCPCS: 51702; 70450; 71250; 72125; 72170; 73030; 80048; 81001; 85025; 85610; 85730; 90715; 93005; 96374; 96375; 99285; J7030; A4216; J3490

== ENCOUNTER → 2020-04-14 14:37 | Outpatient (CLI) | payer MEDICARE, SELFPAY ==
[2020-03-26 15:11] VITALS: BMI 25.5
--- NOTE | 2020-04-14 14:42 | CT_ITS ---
STUDY: CT BRAIN WITHOUT CONTRAST REASON FOR EXAM: Male, 74 years old. Hematoma with loss of consciousness after fall. For follow-up. RADIATION DOSAGE (If Supplied By Facility): CTDIvol = ( 60.81 ) mGy, DLP = ( 1112.69 ) mGycm TECHNIQUE: Transaxial CT imaging of the brain was performed without administration of intravenous contrast material. Individualized dose optimization techniques were used for this CT. COMPARISON: March 26, 2020. FINDINGS: Normal soft tissue structures. Normal calvarium. Normal size ventricles and extra-axial spaces for the patient''s age. Normal white matter tracts of the cerebral hemispheres. Normal basal ganglia and thalami. Normal brainstem. Normal cerebellum. There is no intracranial hemorrhage. There are no findings of an acute ischemic infarction. Maxillary sinus mucous retention cysts. CT/Brain/Head without Contrast IMPRESSION: Normal brain for the patient''s age. Electronically Signed: Rajinder Acharya MD at 5:13 EDT , Service support ,
== END ==
PROVIDERS: PCP Internal Medicine
DX: S06.5X1A Traumatic subdural hemorrhage with loss of consciousness of 30 minutes or less, initial encounter (principal)
CPT/HCPCS: 70450

== ENCOUNTER 2020-06-11 16:43 | Emergency (ER) | payer MEDICARE, SELFPAY ==
[2020-06-11 16:43] VITALS: BP 152/91; PULSE 75; RESP 18; TEMP 37.1; O2SAT 95; BMI 50.8
[2020-06-11 17:02] VITALS: BP 176/74; PULSE 68; RESP 15; O2SAT 98
--- NOTE | 2020-06-11 17:06 | ED.RN ---
PER DAUGHTER, ON 06/06 PT HAD INR DRAWN WITH RESULT 7.9. THEY DID NOT HAVE HIM STOP OR SKIP ANY DOSES
--- NOTE | 2020-06-11 17:17 | CT_ITS ---
We are attempting to reach an attending provider to discuss findings. An addendum with communication details will be sent when the communication is complete. STUDY: CT BRAIN WITHOUT CONTRAST REASON FOR EXAM: Male, 74 years old. PT HIT HEAD ON SHELF X 2 DAYS AGO RADIATION DOSAGE (If Supplied By Facility): CTDIvol = ( 60.81 ) mGy, DLP = ( 1089.89 ) mGycm TECHNIQUE: Transaxial CT imaging of the brain was performed without administration of intravenous contrast material. Individualized dose optimization techniques were used for this CT. COMPARISON: 04/14/2020 FINDINGS: Normal soft tissue structures. Normal calvarium. Calcification of cavernous carotids. . Old lacunar infarct in left basal ganglia.. Normal brainstem. Normal cerebellum. There is a moderate sized acute subdural hematoma on the right approximately 9 mm in size effacing the cortical sulci of the the right cerebral hemisphere and compressing the right lateral ventricle with [id number] midline shift approximating 6 to 7 mm There are no findings of an acute ischemic infarction. Postsurgical changes of the orbits. Mucosal thickening seen within the maxillary sinuses bilaterally. CT/Brain/Head without Contrast IMPRESSION: Acute right subdural hematoma producing right to left midline shift Electronically Signed: Ignacio Villalobos MD at 17:42 EDT , Service support ,
--- NOTE | 2020-06-11 17:19 | ED.DCSUM_ITS ---
- ER Visit Summary Date of Service: 06/11/20 Chief Complaint: Head injury History of Present Illness: The patient is a 74 M history of history of CAD, bypass, prior subdural and hypothyroidism. Patient is on Coumadin. Per family patient himself is deaf and does not speak. He stood up the other day had a shelf with his head. He was doing fine yesterday today has had a severe headache with nausea and vomiting. Daughter is here with the patient and she signs and is the service coordinator. Physical Examination: Older male currently no acute distress vital signs are stable and afebrile. Initial blood pressure 132/91. He does not look septic or toxic. HEENT exam pupils are unreactive laser motions are intact. He does have a quarter sized hematoma on the right posterior scalp. There is no active bleeding or laceration. C-spine nontender. Trachea midline. Lungs clear to auscultation. Heart regular rhythm. 4/6 systolic ejection murmur. Valvular click. Chest wall nontender. Abdomen soft nontender. Normal bowel sounds no peritoneal signs. Patient is moving all 4 extremities. Neurologically is awake. He follows commands. He answers questions by signing. Test Results: CBC showed a white count of 7. Hemoglobin is 12. Chemistries unremarkable glucose of 112 normal creatinine. PT/INR was 26 and 2.5. Patient is on Coumadin. CAT scan of his brain showed a right-sided subdural hematoma of approximately 9 mm. With right midline shift 6 to 7 mm. Read by the radiologist and reviewed by me. I did discuss this with the radiologist. Emergency Department Course and Treatment: CAT scan will be obtained due to the head injury and then on blood thinners with screening labs and an INR. Treated with vitamin K IV and K Centra IV. I discussed these under dosages with the pharmacist. Treatment Plan: I spoke to the patient's daughter for his last subdural he was treated at [facility]. I spoke to the transfer line and their trauma surgeon camera control operator. They will accept the patient in transfer to their ICU room 219. They requested I give the patient K Centra and vitamin K which is been ordered. We are working on transport at this time. If quickly available he will go by ground squad if not he will go by air. Disposition: Transfer to [facility]. To be evaluated there for an acute intracranial bleed. Impression: Acute, traumatic subdural hematoma with shift Subacute recent closed head injury Anticoagulated on Coumadin This note was generated with [employer] ([employer] dictation software. It may contain incorrect words, spelling, and punctuation that were not noted in review of the chart prior to signing ED Disposition - Plan for ED Patient: Referrals: Abe Childress MD [Primary Care Provider] -
[2020-06-11 17:31] LABS: Absolute Neutrophil Count 6.7 X10^3/uL (2.0-7.7); Hematocrit 38.1 % (40-54); Hemoglobin 12.2 g/dL (13.0-16.5); Lymphocyte % 5.2 % (19-41); Mean Corpuscular Hgb 31.9 pg (27.0-32.0); Mean Corpuscular Volume 99.7 fL (80-94); Monocyte# 0.65 X10^3/uL; Monocyte% 8.4 % (0-10); NRBC Flagged by Analyzer 0 % (0-5); Neutrophil # 6.65 X10^3/uL (2.7-7.7); Neutrophil % 85.9 % (47-70); POSITIVE DIFFERENTIAL YES; Platelet Count 192 K/mm3 (150-450); RBC Distribution Width CV 14.1 % (11.6-14.6); RBC Distribution Width SD 51.5 fl (35.1-43.9); Red Blood Count 3.82 M/mm3 (4.6-6.2); White Blood Count 7.7 K/mm3 (4.4-11.0)
[2020-06-11 17:36] LABS: Differential Indicated SCAN CRITERIA MET; International Normalized Ratio 2.5; Prothrombin Time (Protime)PT. 26.6 SECONDS (11.7-14.9)
[2020-06-11 17:44] LABS: Anion Gap 2 (5-15); BUN 16 mg/dL (7-18); BUN/Creat Ratio 18.6 RATIO (10-20); Calcium,Total 8.9 mg/dL (8.5-10.1); Chloride 104 mmol/L (98-107); Creatinine, Serum 0.86 mg/dL (0.70-1.30); EST Glomerular Filtration Rate 92 mL/min (>60); Est Glom Filt Rate - Afr Amer 111 mL/min (>60); Estimated Creatinine Clearance 81.46 ml/min; Glucose 112 mg/dL (74-106); Potassium 3.9 mmol/L (3.5-5.1); Sodium Level 138 mmol/L (136-145)
[2020-06-11 18:00] VITALS: BP 175/65; PULSE 69; RESP 16; O2SAT 97
--- NOTE | 2020-06-11 18:01 | ED.RN ---
Addendum entered by Matilde Dennis 06/11/20 18:04: RM CHANGED TO 203 Original Note: [address] REPORT [phone]
[2020-06-11 18:02] LABS: Differential Comment SCANNED
--- NOTE | 2020-06-11 18:12 | NURSING ---
[facility] ETA IS 20 MIN
--- NOTE | 2020-06-11 18:21 | CT_ITS ---
STUDY: CT CERVICAL SPINE WITHOUT CONTRAST REASON FOR EXAM: Male, 74 years old. HEAD INJURY, HIT HEAD ON SHELF WITH POSITIVE BLEED RADIATION DOSAGE (If Supplied By Facility): CTDIvol = ( 22.37 ) mGy, DLP = ( 543.36 ) mGycm TECHNIQUE: High resolution transaxial imaging was performed without contrast material. Sagittal and coronal images were reconstructed. Individualized dose optimization techniques were used for this CT. COMPARISON: None FINDINGS: Normal craniovertebral junction. Normal anterior atlantoaxial articulation. Normal odontoid process. There is asymmetric widening of the space between the lateral mass C1 and the dens possibly representing ligamentous injury. MRI would be useful for further evaluation if clinically warranted Normal cervical lordosis. Normal vertebral bodies and posterior osseous elements. C2-3: Normal endplates. Normal disc height and morphology. Normal central canal and intervertebral neuroforamina. C3-4: Minor endplate spurring.. Normal disc height and morphology. Normal central canal. Minor bilateral neural foraminal encroachment secondary to bony hypertrophy.. C4-5: Normal endplates. Normal disc height and morphology. Normal central canal and intervertebral neuroforamina. C5-6: Normal endplates. Normal disc height and morphology. Normal central canal and intervertebral neuroforamina. C6-7: Normal endplates. Normal disc height and morphology. Normal central canal and intervertebral neuroforamina. C7-T1: Normal endplates. Normal disc height and morphology. Normal central canal and intervertebral neuroforamina. Normal visualized soft tissue structures. CT/Spine Cervical without Contras IMPRESSION: No evidence for acute fracture or subluxation. However there is asymmetric widening of the space between the right lateral mass of C1 and the dens possibly representing ligamentous injury. MRI would be useful for further assessment in this regard if indicated Electronically Signed: Ignacio Villalobos MD at 18:34 EDT , Service support ,
[2020-06-11] MEDS: HUMAN PROTHROMBIN COMPLX(PCC) 2,500 UNIT in Viaflex Bag 1 BAG 500 UNIT IV (18:35)
[2020-06-11 18:54] VITALS: BP 159/74; PULSE 56; RESP 18; O2SAT 99
== END 2020-06-11 18:55 | disposition short-term general hospital (02) ==
LOC: ED 17:58
PROVIDERS: Emergency Provider Emergency Medicine; PCP Internal Medicine
DX: S06.5X9A Traumatic subdural hemorrhage with loss of consciousness of unspecified duration, initial encounter (principal); I25.10 Atherosclerotic heart disease of native coronary artery without angina pectoris; E03.9 Hypothyroidism, unspecified; E78.00 Pure hypercholesterolemia, unspecified; Z79.01 Long term (current) use of anticoagulants; Z95.1 Presence of aortocoronary bypass graft; Z79.899 Other long term (current) drug therapy; X58.XXXA Exposure to other specified factors, initial encounter
CPT/HCPCS: 70450; 72125; 80048; 85025; 85610; 96365; 99285; C9132; A4216; J3490

== ENCOUNTER → 2020-10-01 16:41 | Outpatient (CLI) | payer MEDICARE, SELFPAY ==
[2020-10-01 17:18] LABS: D-Dimer Quantitative (DVT/PE) 0.45 FEU/ug/m (0.27-0.49)
== END ==
PROVIDERS: PCP Internal Medicine; Referring Provider Nurse Practitioner; Visit Provider Nurse Practitioner
DX: R60.0 Localized edema (principal); R06.00 Dyspnea, unspecified
CPT/HCPCS: 83880; 85379

== ENCOUNTER 2021-11-18 16:14 | Outpatient (CLI) | payer MEDICARE, SELFPAY ==
[2021-11-18 18:18] LABS: Absolute Lymphocyte Count 0.48 X10^3/uL (0.83-4.51); Absolute Neutrophil Count 6.1 X10^3/uL (2.0-7.7); Basophil# 0.02 X10^3/uL; Basophil% 0.3 % (0-1); Eosinophil# 0.11 X10^3/uL; Eosinophils% 1.5 % (0-5); Hematocrit 39.9 % (40-54); Hemoglobin 13.2 g/dL (13.0-16.5); Lymphocyte # 0.48 X10^3/ul (0.83-4.51); Lymphocyte % 6.6 % (19-41); Mean Corp Hgb Conc 33.1 g/dL (32-36); Mean Corpuscular Hgb 32.2 pg (27.0-32.0); Mean Corpuscular Volume 97.3 fL (80-94); Mean Platelet Vol. 10.2 fl (6.2-12.0); Monocyte# 0.47 X10^3/uL; Monocyte% 6.5 % (0-10); NRBC Flagged by Analyzer 0 % (0-5); Neutrophil # 6.11 X10^3/uL (2.7-7.7); Neutrophil % 83.9 % (47-70); POSITIVE DIFFERENTIAL YES; Platelet Count 198 K/mm3 (150-450); RBC Distribution Width CV 13.3 % (11.6-14.6); RBC Distribution Width SD 47.3 fl (35.1-43.9); White Blood Count 7.3 K/mm3 (4.4-11.0)
[2021-11-18 18:26] LABS: Differential Indicated SCAN CRITERIA MET
[2021-11-18 18:38] LABS: AST(SGOT) 27 U/L (15-37); Alanine Aminotransfer ALT/SGPT 63 U/L (16-61); Albumin, Serum 3.4 g/dL (3.2-5.0); Alkaline Phosphatase 109 U/L (45-117); Anion Gap 7 (5-15); BUN 26 mg/dL (7-18); BUN/Creat Ratio 31.3 RATIO (10-20); Bilirubin, Direct 0.11 mg/dL (0.00-0.30); Calcium,Total 8.8 mg/dL (8.5-10.1); Chloride 105 mmol/L (98-107); Creatinine, Serum 0.83 mg/dL (0.70-1.30); EST Glomerular Filtration Rate 95 mL/min (>60); Est Glom Filt Rate - Afr Amer 115 mL/min (>60); Globulin 3.6 g/dL (2.2-4.2); Glucose 98 mg/dL (74-106); Sodium Level 138 mmol/L (136-145)
[2021-11-19 08:54] LABS: Hepatitis B Surface Antibody Non-Reactive; Hepatitis B Surface Antigen Non-Reactive (Nonreactive); Hepatitis C Antibody Non-Reactive (Nonreactive)
[2021-11-20 22:06] LABS: QNTFERON TB Nil Value 0.05 IU/mL (.); QNTFERON TB1+ Ag Value 0.04 IU/mL (.); QNTFERON TB2+ Ag Value 0.04 IU/mL (.)
[2021-11-20 22:43] LABS: Hepatitis B Core Ab Total Negative (Negative); QNTIFERON TB Positive Criteria Negative (Negative)
== END 2021-11-18 23:59 | disposition home or self-care (01) ==
LOC: MTLAB 16:18
PROVIDERS: PCP Internal Medicine; Referring Provider Dermatology; Visit Provider Dermatology
DX: L40.0 Psoriasis vulgaris (principal); Z79.899 Other long term (current) drug therapy
CPT/HCPCS: 36415; 80048; 80076; 85025; 86480; 86704; 86706; 86803; 87340